=== PATIENT | female | born 1940 | race Caucasian/White ===

== ENCOUNTER 2016-07-17 09:04 | Day surgery (SDC) | payer BC ==
--- NOTE | ~2016-07-17 | EGD ---
EGD REPORT [facility] [address] [address] NAME: TEE MONTES : [birth year] STATUS : REG [facility]#: [id number] AGE: 75 ADM/REG DATE : 07/17/16 MR#: [id number] REPORT SERV DATE: 07/17/16 DICTATED BY: SALLY ALTAMIRANO III DATE: 07/17/16 REPORT STATUS : Draft [facility] DATE: 07/17/16 Endoscopy Center Patient Name: Tee Montes Date of : 1940 Attending MD: SALLY ALTAMIRANO III, MD Procedure Date No Time: 07/17/2016 Procedure: Colonoscopy Indications: Screening for colorectal malignant neoplasm Referring MD: JOSE EDUARDO ARANA Medicines: Propofol per Anesthesia Complications: No immediate complications. Procedure: After I obtained informed consent, the scope was passed under direct vision. Throughout the procedure, the patient's blood pressure, pulse, and oxygen saturations were monitored continuously. The PCF [id number] was introduced through the anus and advanced to the terminal ileum. The colonoscopy was performed with ease. The patient tolerated the procedure well. The quality of the bowel preparation was good. Findings: Multiple diverticula were found in the sigmoid colon. A sessile polyp was found in the cecum. The polyp was 5 mm in size. The polyp was removed with a cold biopsy forceps. Resection and retrieval were complete. A sessile polyp was found in the sigmoid colon. The polyp was 6 mm in size. The polyp was removed with a cold biopsy forceps. Resection and retrieval were complete. Internal hemorrhoids were found during retroflexion. The terminal ileum appeared normal. There was an inflamed sigmoid diverticulum with purulence c/w diverticulitis. Impression: - Diverticulosis in the sigmoid colon. - One 5 mm polyp in the cecum. Resected and retrieved. - One 6 mm polyp in the sigmoid colon. Resected and retrieved. - Internal hemorrhoids. - The examined portion of the ileum was normal. Recommendation: - Patient has a contact number available for emergencies. The signs and symptoms of potential delayed complications were discussed with the patient. Return to normal activities tomorrow. Written discharge instructions were provided to the patient. EGD REPORT [address] [address] NAME: TEE MONTES : [birth year] STATUS : REG [facility] [place] PAT#: [id number] AGE: 75 ADM/REG DATE : 07/17/16 MR#: [id number] REPORT SERV DATE: 07/17/16 DICTATED BY: SALLY ALTAMIRANO III DATE: 07/17/16 REPORT STATUS : Draft TRANSCRIBED BY: [email or web address] DATE: 07/17/16 - Discharge patient to home. - High fiber diet indefinitely. - Continue present medications. - Await pathology results. Procedure Code(s): --- Professional --- 93035, Colonoscopy, flexible, proximal to splenic flexure; with biopsy, single or multiple Diagnosis Code(s): --- Professional --- K64.8, Other hemorrhoids K57.30, Diverticulosis of large intestine without perforation or abscess without bleeding D12.5, Benign neoplasm of sigmoid colon D12.0, Benign neoplasm of cecum Z12.11, Encounter for screening for malignant neoplasm of colon CPT copyright 2013 [employer]. All rights reserved. The codes documented in this report are preliminary and upon warehouse order picker review may be revised to meet current compliance requirements. SALLY ALTAMIRANO III, MD 07/17/2016 11:37 AM This report has been signed electronically. Number of Addenda: 0 Note Initiated On: 07/17/2016 11:06 AM Scope Withdrawal Time 0 hours 0 minutes 0 seconds [address] [place] [id number]
--- NOTE | ~2016-07-17 | EGD ---
EGD REPORT [facility] [address] [address] NAME: TEE MONTES : [birth year] STATUS : REG [facility]#: [id number] AGE: 75 ADM/REG DATE : 07/17/16 MR#: [id number] REPORT SERV DATE: 07/17/16 DICTATED BY: SALLY ALTAMIRANO III DATE: 07/17/16 REPORT STATUS : Draft [facility]: [facility] DATE: 07/17/16 Endoscopy Center Patient Name: Tee Montes Date of : 1940 Attending MD: SALLY ALTAMIRANO III, MD Procedure Date No Time: 07/17/2016 Procedure: Upper GI endoscopy Indications: Iron deficiency anemia Referring MD: Gibran Campuzano Medicines: Propofol per Anesthesia Complications: No immediate complications. Procedure: After obtaining informed consent, the endoscope was passed under direct vision. Throughout the procedure, the patient's blood pressure, pulse, and oxygen saturations were monitored continuously. The GIF H190 [id number] was introduced through the mouth, and advanced to the third part of duodenum. The upper GI endoscopy was accomplished with ease. The patient tolerated the procedure well. Findings: A non-obstructing Schatzki ring (acquired) was found at the gastroesophageal junction. A small hiatus hernia was present. Patchy mildly erythematous mucosa without bleeding was found in the gastric antrum. Biopsies were taken with a cold forceps for histology. A single medium-sized scar was found in the prepyloric region of the stomach. The examined duodenum was normal. Biopsies were taken with a cold forceps for evaluation of celiac disease. Impression: - Non-obstructing Schatzki ring. - Hiatus hernia. - Erythematous mucosa in the antrum. Biopsied. - Scar in the prepyloric region of the stomach. - Normal examined duodenum. Biopsied. Recommendation: - Patient has a contact number available for emergencies. The signs and symptoms of potential delayed complications were discussed with the patient. Return to normal activities tomorrow. Written discharge instructions were provided to the patient. - Discharge patient to home. - Return to previous diet. - Follow an antireflux regimen. EGD REPORT [address] [address] NAME: TEE MONTES : [birth year] STATUS : REG [facility] PAT#: [id number] AGE: 75 ADM/REG DATE : 07/17/16 MR#: [id number] REPORT SERV DATE: 07/17/16 DICTATED BY: SALLY ALTAMIRANO III DATE: 07/17/16 REPORT STATUS : Draft TRANSCRIBED BY: [email or web address] DATE: 07/17/16 - Continue present medications. - Await pathology results. Procedure Code(s): --- Professional --- 23708, Esophagogastroduodenoscopy, flexible, transoral; with biopsy, single or multiple Diagnosis Code(s): --- Professional --- K22.2, Esophageal obstruction K44.9, Diaphragmatic hernia without obstruction or gangrene K31.9, Disease of stomach and duodenum, unspecified K31.89, Other diseases of stomach and duodenum D50.9, Iron deficiency anemia, unspecified CPT copyright 2013 [employer]. All rights reserved. The codes documented in this report are preliminary and upon horse stud manager review may be revised to meet current compliance requirements. SALLY ALTAMIRANO III, MD 07/17/2016 11:16 AM This report has been signed electronically. Number of Addenda: 0 Note Initiated On: 07/17/2016 11:07 AM Scope Withdrawal Time 0 hours 0 minutes 0 seconds [address] [id number]
[~2016-07-17 09:04] MED LIST: ALLEGRA180 PO; CALTRA600D PO; COREG12 PO; FLEX PO; HALF81 PO; IMDUR30 PO; IXEMPRA IV; L40 PO; LISINOPRIL40 MG PO; MAGOX4 PO; MOBIC15 MG PO; NORV5 PO; PCET PO; POTASSIUM GLUCONATE PO; POTASSIUM PO; PRAVAC PO; PRILOSEC40 MG PO; SYN.025B PO; VITAMIN D1000 UNI1 PO; XELODA PO; ZOFRAN8 PO; [UNRECOGNIZED DRUG - REMARK]
[2016-11-05] MEDS ORDERED: HALF81 PO (00:43)
[2016-11-05] MEDS ORDERED: COREG12 PO (00:44)
[2016-11-05] MEDS ORDERED: CALTRA600D PO (00:45)
[2016-11-05] MEDS ORDERED: LEVOTHYROXIN25 MCG PO (00:46)
[2016-11-05] MEDS ORDERED: LISINOPRIL40 MG PO (00:47)
[2016-11-05] MEDS ORDERED: MAGOX4 PO (00:47)
[2016-11-05] MEDS ORDERED: MOBIC15 MG PO (00:49)
[2016-11-05] MEDS ORDERED: PRILOSEC40 MG PO (00:49)
[2016-11-05] MEDS ORDERED: ZOFRAN8 PO (00:51)
[2016-11-05] MEDS ORDERED: POTASSIUM GLUCO99 MG PO (00:52)
[2016-11-05] MEDS ORDERED: PRAVAC PO (00:53)
== END 2016-07-17 23:59 | disposition home or self-care (01) ==
LOC: DMU 09:04
PROVIDERS: Internal Medicine Gastroenterology
PROC: 0DB68ZX Excision of Stomach, Via Natural or Artificial Opening Endoscopic, Diagnostic (ICD-10-PCS; 2016-07-17)
PROC: 0DB98ZX Excision of Duodenum, Via Natural or Artificial Opening Endoscopic, Diagnostic (ICD-10-PCS; 2016-07-17)
PROC: 0DBH8ZZ Excision of Cecum, Via Natural or Artificial Opening Endoscopic (ICD-10-PCS; principal; 2016-07-17 10:30)
PROC: 0DBN8ZZ Excision of Sigmoid Colon, Via Natural or Artificial Opening Endoscopic (ICD-10-PCS; 2016-07-17 10:30)
DX: Z12.11 Encounter for screening for malignant neoplasm of colon (principal); D12.0 Benign neoplasm of cecum; D12.5 Benign neoplasm of sigmoid colon; K64.8 Other hemorrhoids; K57.30 Diverticulosis of large intestine without perforation or abscess without bleeding; K22.2 Esophageal obstruction; K44.9 Diaphragmatic hernia without obstruction or gangrene; K31.9 Disease of stomach and duodenum, unspecified; K31.89 Other diseases of stomach and duodenum; D50.9 Iron deficiency anemia, unspecified; I10 Essential (primary) hypertension; G89.29 Other chronic pain; M54.9 Dorsalgia, unspecified; K21.9 Gastro-esophageal reflux disease without esophagitis; E03.9 Hypothyroidism, unspecified; H26.9 Unspecified cataract; E89.0 Postprocedural hypothyroidism; M48.02 Spinal stenosis, cervical region; E78.00 Pure hypercholesterolemia, unspecified; Z95.1 Presence of aortocoronary bypass graft; Z88.5 Allergy status to narcotic agent; Z88.8 Allergy status to other drugs, medicaments and biological substances; Z85.3 Personal history of malignant neoplasm of breast; Z90.49 Acquired absence of other specified parts of digestive tract; Z98.890 Other specified postprocedural states; Z92.21 Personal history of antineoplastic chemotherapy; Z90.710 Acquired absence of both cervix and uterus; Z86.73 Personal history of transient ischemic attack (TIA), and cerebral infarction without residual deficits
CPT/HCPCS: 88305; J2405

== ENCOUNTER 2016-08-07 18:01 | Emergency (ER) | payer BC ==
[2016-08-07 18:19] LABS: BASOPHILS 0.6 %; BASOPHILS ABSOLUTE 0.03 10/3/uL (0.0-0.16); EOSINOPHILS 0.4 %; EOSINOPHILS ABSOLUTE 0.02 10/3/uL (0.0-0.53); ER CBC TAT 0 Hrs 13 Mins; HEMATOCRIT 39.7 % (36.0-48.0); HEMOGLOBIN 13.1 g/dL (12.0-16.0); IMMATURE GRANULOCYTES 0.2 %; IMMATURE GRANULOCYTES ABSOLUTE 0.01 10/3/uL (0.0-0.11); LYMPHOCYTES 21.4 %; LYMPHOCYTES ABSOLUTE 1.12 10/3/uL (0.67-4.30); MANUAL DIFF NO %; MEAN CORPUSCULAR HEMOGLOB 30.3 pg (26.0-34.0); MEAN CORPUSCULAR VOLUME 91.9 fL (80-100); MEAN PLATELET VOLUME 10.7 fL (9.2-13.0); MONOCYTES 3.8 %; NEUTROPHILS 73.6 %; NEUTROPHILS ABSOLUTE 3.86 10/3/uL (2.02-8.40); PLATELET COUNT 160 10/3/uL (150-400); RBC DISTRIBUTION WIDTH 17.9 % (12.0-16.0); RED CELL COUNT 4.32 10/6/uL (4.0-5.6); WHITE BLOOD CELLS 5.2 10/3/uL (4.5-10.5)
[2016-08-07 18:38] LABS: A/G RATIO 0.9 (0.7-1.9); ALBUMIN 3.3 G/DL (3.5-5.0); CALCIUM, SERUM 8.4 MG/DL (8.5-10.4); CHLORIDE, SERUM 106 MMOL/L (96-112); CO2 (CARBON DIOXIDE) 25 MMOL/L (24-34); CREATININE 0.88 MG/DL (0.55-1.02); GFR AFRICAN AMERICAN 75 ML/MIN (>=60); GFR NON AFRICAN AMERICAN 65 ML/MIN (>=60); GLOBULIN 3.6 G/DL (2.5-4.1); GLUCOSE, SERUM 90 MG/DL (60-99); POTASSIUM, SERUM 4.4 MMOL/L (3.5-5.3); SGOT(AST) 17 U/L (5-40); SGPT(ALT) 24 U/L (5-65); SODIUM, SERUM 138 MMOL/L (135-148); TOTAL BILIRUBIN 0.6 MG/DL (0-1.2); TOTAL PROTEIN 6.9 G/DL (6.0-8.5)
[2016-08-07 18:40] LABS: ALKALINE PHOSPHATASE 96 U/L (45-117); BUN (BLOOD UREA NITROGEN) 29 MG/DL (6-23)
[2016-11-05] MEDS ORDERED: HALF81 PO (00:43)
[2016-11-05] MEDS ORDERED: COREG12 PO (00:44)
[2016-11-05] MEDS ORDERED: CALTRA600D PO (00:45)
[2016-11-05] MEDS ORDERED: LEVOTHYROXIN25 MCG PO (00:46)
[2016-11-05] MEDS ORDERED: MAGOX4 PO (00:47)
[2016-11-05] MEDS ORDERED: LISINOPRIL40 MG PO (00:47)
[2016-11-05] MEDS ORDERED: PRILOSEC40 MG PO (00:49)
[2016-11-05] MEDS ORDERED: MOBIC15 MG PO (00:49)
[2016-11-05] MEDS ORDERED: ZOFRAN8 PO (00:51)
[2016-11-05] MEDS ORDERED: POTASSIUM GLUCO99 MG PO (00:52)
[2016-11-05] MEDS ORDERED: PRAVAC PO (00:53)
== END 2016-08-07 20:25 | disposition home or self-care (01) ==
LOC: ER 18:01
PROVIDERS: Emergency Medicine
DX: E86.0 Dehydration (principal); C50.911 Malignant neoplasm of unspecified site of right female breast; I10 Essential (primary) hypertension; K21.9 Gastro-esophageal reflux disease without esophagitis; Z86.73 Personal history of transient ischemic attack (TIA), and cerebral infarction without residual deficits; Z87.891 Personal history of nicotine dependence; Z88.5 Allergy status to narcotic agent; Z88.8 Allergy status to other drugs, medicaments and biological substances; Z79.82 Long term (current) use of aspirin; Z79.899 Other long term (current) drug therapy
CPT/HCPCS: 80053; 85025; 93005; 96374; 99285